=== PATIENT | male | born 1985 | race Caucasian/White ===

== ENCOUNTER 2020-04-19 08:21 | Emergency (ER) | payer BC, MEDICAID ==
[~2020-04-19] VITALS: Ht 182.9 cm; Wt 77.1 kg
[2020-04-19 08:32] VITALS: BP_SYST 102
--- NOTE | 2020-04-19 08:35 | NUR ---
ambulated to bed 4
--- NOTE | 2020-04-19 08:40 | NUR ---
Pt walked in to ER with c/o right cheek/jaw pain, 6/10 x2 days. Swelling noted to right jaw. V/S stable, pt is afebrile. Currently sitting at bedside, will continue to monitor.
--- NOTE | 2020-04-19 08:45 | NUR ---
ER Dr. Esparza at bedside examining patient.
[2020-04-19] MEDS ORDERED: DIPH-TET-PERTUS Vaccine 0.5 ML VIAL (ADACEL) I.M. ONE (09:00)
[2020-04-19] MEDS ORDERED: AMOXICILLIN/CLAVULANATE POTASSIUM 875 MG TABLET PO ONE (09:00)
--- NOTE | 2020-04-19 09:05 | NUR ---
Patient given written and verbal discharge instructions and verbalizes understanding. ER MD discussed with patient the results and treatment provided. Patient in stable condition. ID arm band removed. Rx of Augmentin given. Patient educated on pain management and to follow up with PMD. Pain Scale 3. Opportunity for questions provided and answered. Medication side effect fact sheet provided.
[2020-04-19 09:07] VITALS: BP_SYST 102
== END 2020-04-19 09:07 | disposition home or self-care (01) ==
LOC: SED 08:21
DX: K12.2 Cellulitis and abscess of mouth (principal)
CPT/HCPCS: 90715; 99283

== ENCOUNTER 2020-08-02 04:15 | Emergency (ER) | payer MEDICAID ==
[~2020-08-02] VITALS: Ht 182.9 cm; Wt 74.8 kg
[2020-08-02 04:24] VITALS: BP_SYST 126
[2020-08-02] MEDS ORDERED: SULFAMETHOXAZOLE/TRIMETHOPR DS 1 TABLET PO ONE (04:30)
[2020-08-02] MEDS ORDERED: SULFAMETHOXAZOLE/TRIMETHOPR DS 1 TABLET ONE (04:40)
[2020-08-02 04:49] VITALS: BP_SYST 126
== END 2020-08-02 04:49 | disposition home or self-care (01) ==
LOC: SED 04:15
DX: L03.114 Cellulitis of left upper limb (principal); L98.9 Disorder of the skin and subcutaneous tissue, unspecified; Z88.8 Allergy status to other drugs, medicaments and biological substances
CPT/HCPCS: 99283

== ENCOUNTER 2021-08-11 17:25 | Emergency (ER) | payer MEDICAID ==
[~2021-08-11] VITALS: Ht 182.9 cm; Wt 90.7 kg
[2021-08-11 17:28] VITALS: BP_SYST 114
[2021-08-11] MEDS ORDERED: cloNIDine HCL 0.1 MG TABLET PO ONE (17:45)
[2021-08-11] MEDS ORDERED: ONDANSETRON 4 MG ODT TAB PO ONE (17:45)
[2021-08-11] MEDS ORDERED: NALO4SPR NS (17:46)
[2021-08-11] MEDS ORDERED: ONDA-8 TL (17:46)
[2021-08-11 18:14] VITALS: BP_SYST 110
== END 2021-08-11 18:14 ==
LOC: SED 17:25
DX: F11.23 Opioid dependence with withdrawal (principal); F11.20 Opioid dependence, uncomplicated; Z79.899 Other long term (current) drug therapy; Z88.8 Allergy status to other drugs, medicaments and biological substances
CPT/HCPCS: 99284; Q0162